=== PATIENT | female | born 1985 | race Caucasian/White ===

== ENCOUNTER 2017-01-29 13:01 | Emergency (ER) | payer MEDICAID ==
[~2017-01-29] VITALS: Ht 165.1 cm; Wt 78.5 kg
[2017-01-29 13:18] VITALS: BP 129/71
== END 2017-01-29 14:36 | disposition home or self-care (01) ==
LOC: ER 13:08
DX: N30.91 Cystitis, unspecified with hematuria (principal); F17.210 Nicotine dependence, cigarettes, uncomplicated
CPT/HCPCS: 99281; A4606; Z7610; Z7502

== ENCOUNTER 2017-06-16 16:05 | Emergency (ER) | payer MEDICAID ==
[~2017-06-16] VITALS: Ht 167.6 cm; Wt 70.3 kg
[2017-06-16 16:19] VITALS: BP 154/85
[2017-06-16 16:57] LABS: APPEARANCE,URINE Clear (CLEAR); BILIRUBIN,URINE Negative (NEGATIVE); BLOOD, URINE Negative Ery/uL (NEGATIVE); COLOR,URINE Yellow (YELLOW); KETONES,URINE Negative (NEGATIVE); LEUKOCYTE ESTERASE ,URINE Negative (NEGATIVE); NITRITE, URINE Negative (NEGATIVE); PROTEIN,URINE Negative (NEGATIVE); UGLUCOSE Negative (NEGATIVE); UROBILINOGEN,URINE 0.2 EU/dL (0.2)
[2017-06-16 16:58] LABS: PREGNANCY TEST URINE QUAL NEGATIVE (NEGATIVE)
== END 2017-06-16 18:29 | disposition home or self-care (01) ==
LOC: ER 16:07
DX: N93.8 Other specified abnormal uterine and vaginal bleeding (principal); F17.200 Nicotine dependence, unspecified, uncomplicated
CPT/HCPCS: 36415; 81001; 84703 ×2; 99284; A4606; Z7610; 81000-TC

== ENCOUNTER 2017-09-13 20:31 | Emergency (ER) | payer MEDICAID ==
[~2017-09-13] VITALS: Ht 172.7 cm; Wt 68.0 kg
[2017-09-13 20:34] VITALS: BP 117/71
--- NOTE | 2017-09-13 23:01 | NUR ---
CALLED PT IN [place], NO REPONSE
== END 2017-09-13 23:02 | disposition left against medical advice (07) ==
LOC: ER 20:34
DX: Z53.21 Procedure and treatment not carried out due to patient leaving prior to being seen by health care provider (principal)
CPT/HCPCS: A4606; Z7610

== ENCOUNTER 2020-09-09 08:50 | Emergency (ER) | payer MEDICAID ==
[~2020-09-09] VITALS: Ht 165.1 cm; Wt 80.7 kg
[2020-09-09 08:54] VITALS: BP 113/77
--- NOTE | 2020-09-09 09:40 | NUR ---
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
--- NOTE | 2020-09-09 10:09 | NUR ---
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
--- NOTE | 2020-09-09 10:10 | NUR ---
Patient discharged to home in stable condition. Written and verbal after care instructions given. Patient verbalizes understanding of instruction.
== END 2020-09-09 10:12 | disposition home or self-care (01) ==
LOC: ER 08:54
DX: S93.491A Sprain of other ligament of right ankle, initial encounter (principal); F17.200 Nicotine dependence, unspecified, uncomplicated; X50.1XXA Overexertion from prolonged static or awkward postures, initial encounter; Y93.89 Activity, other specified; Y92.89 Other specified places as the place of occurrence of the external cause; Y99.8 Other external cause status
CPT/HCPCS: 73610-TC